=== PATIENT | male | born 1995 | race Hispanic/Latino ===

== ENCOUNTER 2019-07-09 12:54 | Emergency (ER) | payer OTHER ==
[~2019-07-09] VITALS: Ht 170.2 cm; Wt 83.4 kg
[2019-07-09] MEDS ORDERED: VALA1TAB64 PO (15:28)
[2019-07-09 15:36] VITALS: BP 140/73
[2019-07-09] MEDS ORDERED: cefTRIAXone SOD 250 MG VIAL (J0696) IM ONE (15:45)
[2019-07-09] MEDS ORDERED: AZITHROMYCIN 250 MG TAB PO ONE (15:45)
[2019-07-09] MEDS ORDERED: LIDOCAINE 1% SDV 5 ML VIAL DILUENT ONE (15:45)
[2019-07-09 16:27] LABS: CHLAMYDIA DNA AMPLIFICATION NEGATIVE (NEGATIVE); GC DNA AMPLIFICATION NEGATIVE (NEGATIVE)
[2019-07-13 00:06] LABS: HSV-1 DNA Negative (Negative); HSV-2 DNA Negative (Negative)
== END 2019-07-09 16:32 | disposition home or self-care (01) ==
LOC: M ED 12:54
DX: Z20.2 Contact with and (suspected) exposure to infections with a predominantly sexual mode of transmission (principal); A60.02 Herpesviral infection of other male genital organs
CPT/HCPCS: 81001; 86780; 87529; 87661; 96372; 99284; J0696